=== PATIENT | female | born 1995 ===

== ENCOUNTER 2021-04-13 21:55 | Emergency (ER) | payer SELFPAY ==
[2021-04-13] MEDS ORDERED: SODIUM CHLORIDE 0.9% 1000 ML 1,000 ML IV ONE (22:26)
--- NOTE | 2021-04-13 22:34 | Emergency Department Report ---
HPI - General Chief Complaint: Nausea/Vomiting/Diarrhea Time Seen by Provider: 04/13/21 22:14 - HPI HPI: [facility] --> room 44 The patient is a 26-year-old female present with chief complaint nausea vomiting dizziness. Patient states her symptoms began Halloween night with nausea and vomiting. Patient states the following day she began to feel diffusely weak and dizzy whenever she sits or stands up. Patient denies diarrhea. Patient denies history of fever or cough. Patient denies dysuria or hematuria. Patient states she has been vaccinated against Covid receiving her second Pfizer vaccine 03/10/2021. Patient states she tested negative for Covid twice most recent test occurring today. When asked how she is feeling currently patient states she just feels hot and weak. ED Past Medical Hx - Past Medical History Previous Medical History?: Yes Hx Asthma: Yes Additional medical history: eczema - Surgical History Past Surgical History?: Yes Additional Surgical History: left knee surgery - Family History Family history: no significant - Social History Smoking Status: Never Smoker Substance Use Type: None (Denies illicit drug use), Alcohol (Occasional) - Medications Home Medications: Home Medications Medication Instructions Recorded Confirmed Last Taken Type Meclizine [Antivert] 25 mg PO TID PRN #20 tablet 04/14/21 Unknown Rx Ondansetron [Zofran ODT TAB] 8 mg PO Q8H PRN #20 tab.rapdis 04/14/21 Unknown Rx Sulfamethoxazole/Trimethoprim 1 each PO BID #14 tablet 04/14/21 Unknown Rx [Bactrim DS TAB] ED Review of Systems ROS: Stated complaint: WEAKNESS,CHILL,DIZZY,HEADACHE MINOR CHEST PAIN Other details as noted in HPI Constitutional: malaise. denies: fever Eyes: denies: eye pain ENT: denies: throat pain Respiratory: denies: cough, shortness of breath Cardiovascular: denies: chest pain Endocrine: no symptoms reported Gastrointestinal: nausea, vomiting. denies: abdominal pain, diarrhea Genitourinary: denies: dysuria, hematuria Musculoskeletal: denies: back pain Neurological: denies: headache Physical Exam - Physical Exam Vital Signs: Vital Signs 04/13/21 22:12 Temperature 97.9 F Pulse Rate 85 Respiratory 18 Rate Blood Pressure 152/95 O2 Sat by Pulse 100 Oximetry Physical Exam: GENERAL: The patient is well-developed well-nourished female lying on stretcher not appearing to be in acute distress. [] HEENT: Normocephalic. Atraumatic. Extraocular motions are intact. Patient has moist mucous membranes. NECK: Supple. Trachea midline CHEST/LUNGS: Clear to auscultation. There is no respiratory distress noted. HEART/CARDIOVASCULAR: Regular. There is no tachycardia. There is no gallop rub or murmur. ABDOMEN: Abdomen is soft, nontender. Patient has normal bowel sounds. There is no abdominal distention. SKIN: There is no rash. There is no edema. There is no diaphoresis. NEURO: The patient is awake, alert, and oriented. The patient is cooperative. The patient has no focal neurologic deficits. The patient has normal speech. Cranial nerves II through XII grossly intact. GCS 15 MUSCULOSKELETAL: There is no CVA tenderness. There is no evidence of acute injury. ED Course Vital Signs 04/13/21 22:12 Temperature 97.9 F Pulse Rate 85 Respiratory 18 Rate Blood Pressure 152/95 O2 Sat by Pulse 100 Oximetry ED Medical Decision Making - Lab Data Result diagrams: 04/13/21 22:43 04/13/21 22:43 - EKG Data -: EKG Interpreted by Vt EKG shows normal: sinus rhythm Rate: normal - EKG Data When compared to previous EKG there are: previous EKG unavailable Interpretation: normal EKG, other (No ischemic changes seen) - Differential Diagnosis Gastritis, peptic ulcer disease, UTI, dehydration Critical care attestation.: If time is entered above; I have spent that time in minutes in the direct care of this critically ill patient, excluding procedure time. ED Disposition Clinical Impression: Nausea & vomiting, Dehydration, UTI (urinary tract infection) Disposition: 01 HOME / SELF CARE / HOMELESS Is pt being admited?: No Does the pt Need Aspirin: No Condition: Stable Instructions: Nausea and Vomiting, Adult, [id number], Dehydration, Adult, [id number] Additional Instructions: Return to the emergency department should you develop worsening symptoms, inability to tolerate food or liquids, high fever or any other concerns Prescriptions: Meclizine [Antivert] 25 mg PO TID PRN #20 tablet PRN Reason: Vertigo Sulfamethoxazole/Trimethoprim [Bactrim DS TAB] 1 each PO BID #14 tablet Ondansetron [Zofran ODT TAB] 8 mg PO Q8H PRN #20 tab.rapdis PRN Reason: Nausea Referrals: [facility] [Provider Group] - 3-5 Days Time of Disposition: 01:55
[2021-04-13 22:52] LABS: Basophils # (Auto) 0.1 K/mm3 (0.0-0.1); Basophils % (Auto) 1.2 % (0.0-1.8); Eosinophils # (Auto) 0.1 K/mm3 (0.0-0.4); Eosinophils % (Auto) 1.8 % (0.0-4.3); Hematocrit 44.6 % (30.3-42.9); Hemoglobin 14.9 gm/dl (10.1-14.3); Lymphocytes # (Auto) 3.9 K/mm3 (1.2-5.4); Lymphocytes % (Auto) 50.2 % (13.4-35.0); Mean Corpuscular HGB Conc 33 % (30-34); Mean Corpuscular Volume 85 fl (79-97); Monocytes # (Auto) 0.4 K/mm3 (0.0-0.8); Monocytes % (Auto) 5.7 % (0.0-7.3); Platelet Count 237 K/mm3 (140-440); Red Blood Count 5.27 M/mm3 (3.65-5.03); Red Cell Distribution Width 13.6 % (13.2-15.2)
[2021-04-13 23:17] LABS: Alanine Aminotransferase 18 units/L (7-56); Albumin 3.9 g/dL (3.9-5); Blood Urea Nitrogen 10 mg/dL (7-17); Calcium 9.3 mg/dL (8.4-10.2); Hemolysis Index 8
[2021-04-13 23:29] LABS: Free T4 (Free Thyroxine) 1.54 ng/dL (0.76-1.46)
[2021-04-13 23:36] LABS: BUN/Creatinine Ratio 14
[2021-04-14] MEDS ORDERED: SODIUM CHLORIDE 0.9% 1000 ML 1,000 ML IV ONE (01:03)
[2021-04-14] MEDS ORDERED: MECLIZINE 25 MG TAB PO ONE (01:03)
[2021-04-14 01:53] LABS: Bacteria,Urine 2+ /HPF (Negative); Bilirubin,Urine NEG (Negative); Blood,Urine NEG (Negative); Color,Urine Yellow (Yellow); Mucus,Urine 3+ /HPF; Protein,Urine <15 mg/dL mg/dL (Negative)
[2021-04-14 02:29] VITALS: BP 129/78
--- NOTE | 2021-04-14 09:33 | Electrocardiograph Report ---
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
== END 2021-04-14 02:37 | disposition home or self-care (01) ==
LOC: ED 21:55
DX: E86.0 Dehydration (principal); N39.0 Urinary tract infection, site not specified; R11.2 Nausea with vomiting, unspecified; R94.6 Abnormal results of thyroid function studies; J45.909 Unspecified asthma, uncomplicated; Z88.5 Allergy status to narcotic agent; Z88.8 Allergy status to other drugs, medicaments and biological substances
CPT/HCPCS: 36415; 80053; 81001; 83690; 84439; 84443; 84703; 85025; 87086; 93005; 96360; 96361; 99283; J7030